=== PATIENT | female | born 1945 | race Caucasian/White ===

== ENCOUNTER 2016-11-28 11:01 | Emergency (ER) | payer MEDICARE ==
[~2016-11-28] VITALS: Ht 162.6 cm; Wt 56.0 kg
[2016-11-28] MEDS ORDERED: SODIUM CHLORIDE FLUSH 3 ML SYR IV PRN (11:10)
[2016-11-28] MEDS ORDERED: SODIUM CHLORIDE FLUSH 10 ML SYR IV PRN (11:10)
--- NOTE | 2016-11-28 11:10 | NUR ---
PT PLACED IN [place] [facility] D/T BP. CL
[2016-11-28] MEDS ORDERED: DILTIAZEM 25 MG/5 ML (CARDIZEM) VIAL IV ONE ×2 (11:35→11:50)
[2016-11-28 11:46] LABS: ALBUMIN 4.2 g/dL (3.4-5.0); ANION GAP 23.7 MEQ/L (3-15); CALCULATED IONIZED CALCIUM 4.4 mg/dL (3.8-4.6); TOTAL PROTEIN 7.7 g/dL (6.4-8.5)
[2016-11-28] MEDS ORDERED: meTOprolol 5 MG/5 ML (LOPRESSOR) VIAL IV ONE (12:10)
--- NOTE | 2016-11-28 12:20 | NUR ---
DR AHMET CAMPOS CALLS BACK TO DR LAW TO DISCUSS PT.
--- NOTE | 2016-11-28 12:26 | NUR ---
[facility]
[2016-11-28 12:44] LABS: BAND NEUTROPHILS % 0 % (0-6); MONOCYTES % 7 % (3-11); SEGMENTED NEUTROPHILS % 79 % (51-67)
[2016-11-28 12:45] LABS: EOSINOPHILS % 0 % (0-4); RBC MORPH NORMAL (NORMAL); TOTAL CELLS COUNTED 100
[2016-11-28 12:50] VITALS: BP 84/56
--- NOTE | 2016-11-28 13:00 | NUR ---
DR LAW TALKS WITH [facility] WHO ACCEPTS FOR DR HUNTER AT [facility]. CL
== END 2016-11-28 13:36 | disposition short-term general hospital (02) ==
LOC: EDUNIT# 11:01 → ED 11:04
DX: I48.91 Unspecified atrial fibrillation (principal); N17.9 Acute kidney failure, unspecified; K52.9 Noninfective gastroenteritis and colitis, unspecified; D68.8 Other specified coagulation defects; I10 Essential (primary) hypertension; Z87.891 Personal history of nicotine dependence
CPT/HCPCS: 36415; 71010; 80053; 83605; 83880; 84443; 84484; 85025; 86140; 87040; 93005; 96361; 96374; 96375; 99285; J7030; 93010; 99291

== ENCOUNTER → 2016-11-28 | Outpatient (CLI) | payer MEDICARE | LOC: EMS 13:24 | PROVIDERS: ATTEND Emergency Medicine | DX: I48.91 Unspecified atrial fibrillation (principal); N17.9 Acute kidney failure, unspecified ==

== ENCOUNTER 2017-02-20 15:55 | Emergency (ER) | payer MEDICARE ==
[~2017-02-20] VITALS: Ht 162.6 cm; Wt 58.6 kg
[~2017-02-20 15:55] MED LIST: CARV25TA30 PO; CHOL200044 PO; FURO40TA4 PO; GBPN300C PO; OMEP20TA PO; ROSU40TA PO; SERT100T8 PO; SPRN25T PO
--- OUTSIDE RECORDS SUMMARY | 2017-02-20 16:00 | XMS REPORT | Summary of Care ---
Author Author Gloria Oliva, Jose Organization Unknown Address Unknown Phone Unavailable Care Team Providers Care Ventilating Equipment Installer Name Role Phone Dickson Gonsalez, Kristen Unavailable Unavailable Keyona Patel Unavailable Unavailable Cecilia Oliva, Сергей Unavailable Unavailable Jose Castro M.D. Unavailable Unavailable Сергей Brooks Unavailable Unavailable Unavailable Unavailable Functional Status Name Dates Details Functional status health issues are not documented Status: Name Dates Details Cognitive status health issues are not documented Status: Problems Name Dates Details Depression (311, F32.9) Status: Active Acid reflux (530.81, K21.9) Status: Active Environmental allergies (V15.09, Z91.09) Status: Active Peripheral neuropathy (356.9, G62.9) Status: Active Injury of right foot, initial encounter (959.7, S99.921A) Status: Active CKD (chronic kidney disease) stage 3, GFR 30-59 ml/min (585.3, N18.3) Status: Active Elevated serum creatinine (790.99, R79.89) Status: Active Hypokalemia (276.8, E87.6) Status: Active Dizziness (780.4, R42) Status: Active No appetite (783.0, R63.0) Status: Active Dry heaves (787.03, R11.10) Status: Active Hypotension (458.9, I95.9) Status: Active Sty, internal (373.12, H00.029) Status: Active Atrial fibrillation (427.31, I48.91) Status: Active Hypertension (401.9, I10) Status: Active Hyperlipidemia (272.4, E78.5) Status: Active Chronic obstructive pulmonary disease, unspecified COPD type (496, J44.9) Status: Active Pulmonary hypertension (416.8, I27.2) Status: Active Hypoxia (799.02, R09.02) Status: Active Rhinorrhea (478.19, J34.89) Status: Active Medications Name Dates Details Sertraline HCl - 100 MG Oral Tablet Take one tablet by mouth daily Quantity: 90 Refills: 3 Сергей Brooks M.D. Start 01-Nov-2016 Active Rosuvastatin Calcium 40 MG Oral Tablet TAKE 1 TABLET DAILY. Quantity: 30 Refills: 6 Сергей Brooks M.D. Start 18-Jun-2016 Active Omeprazole 20 MG Oral Capsule Delayed Release TAKE 1 CAPSULE DAILY EVERY MORNING BEFORE BREAKFAST. Quantity: 30 Refills: 11 Сергей Brooks M.D. Start 18-Jun-2016 Active Spironolactone 25 MG Oral Tablet take 1 tablet by mouth every day Quantity: 30 Refills: 11 Patience Brooks M.D.ian Start 18-Jun-2016 Active Mometasone Furoate 50 MCG/ACT Nasal Suspension USE 2 SPRAYS IN EACH NOSTRIL ONCE DAILY Quantity: 1 Refills: 0 Dickson P.A.Kristen Start 18-Jun-2016 Active 17 GM Inhaler Sildenafil Citrate 20 MG Oral Tablet TAKE ONE TABLET BY MOUTH THREE TIMES DAILY Quantity: 90 Refills: 11 Dickson P.AKristen Caldera Start 25-Jun-2016 Active Potassium Chloride Vangie ER 20 MEQ Oral Tablet Extended Release TAKE 1 TABLET TWICE DAILY. Quantity: 60 Refills: 11 Сергей Brooks M.D. Start 25-Jun-2016 Active Oxygen Increase 4L 24 hours daily with rest, activity, and sleep,J44.9 , permanent use , Concentrator plus portable system with conserver. Quantity: 1 Refills: 0 Jose P.A.Keyona Start 10-Jul-2016 Active Supplies nebulizer with supplies, dx J44.9, permanent use Quantity: 1 Refills: 0 Jose P.A.Keyona Start 10-Jul-2016 Active Ipratropium-Albuterol 0.5-2.5 (3) MG/3ML Inhalation Solution USE 1 UNIT DOSE VIA NEBULIZER FOUR TIMES DAILY. (J44.9) Quantity: 360 Refills: 11 Dickson P.A.Kristen Start 10-Jul-2016 Active Budesonide 0.25 MG/2ML Inhalation Suspension USE 1 UNIT DOSE VIA NEBULIZER EVERY 12 HOURS. RINSE MOUTH OUT AFTER USE. Quantity: 2 Refills: 11 Dickson P.A.Kristen Start 10-Jul-2016 Active 2 ML Plas Cont (30 Plas Conts) Sulfacetamide Sodium 10 % Ophthalmic Solution INSTILL 1 DROP 4 times daily Quantity: 1 Refills: 0 Cecilia M.D., Сергей Start 29-Oct-2016 Active 5 ML Bottle Lisinopril 40 MG Oral Tablet TAKE 1 TABLET BY MOUTH TWICE DAILY Quantity: 60 Refills: 3 Larimer M.D., Сергей Start 29-Oct-2016 Active Amiodarone HCl - 200 MG Oral Tablet TAKE 1 TABLET TWICE DAILY. Quantity: 60 Refills: 0 Larimer M.D., Сергей Start 05-Dec-2016 Active Eliquis 2.5 MG Oral Tablet 1 po BID Quantity: 60 Refills: 0 Larimer M.D., Сергей Start 05-Dec-2016 Active Allergies and Adverse Reactions Name Dates Details No Known Drug Allergies (Allergy) Status: Active Past Medical History Name Dates Details History of Arteriosclerosis of carotid artery, right (433.10, I65.21) Status: Resolved History of gastritis (V12.79, Z87.19) Status: Resolved Procedures Procedure Dates Details History of Appendectomy History of Carotid Artery Catheterization History of Cataract Surgery History of Bypass Graft (Non-Vein) Carotid History of Bypass Graft Using Vein: Femoral-femoral RENAL PROFILE 1240 Ordered: 16-Dec-2016 Immunization Name Dates Details Immunizations not documented Family History Name Dates Details Family history of Coronary artery disease (414.00, I25.10) Status: Active Name Dates Details Family history of Cancer of unknown origin (199.1, C80.1) Status: Active Name Dates Details Family history of Coronary artery disease (414.00, I25.10) Status: Active Social History Name Dates Details - Status: Name Dates Details Former smoker Vital Signs Date Test Result Details 18-Dec-2016 09:16 BP Systolic 108 mm[Hg] Status: Comments: Location: RUE; Position: Sitting BP Diastolic 58 mm[Hg] Status: Comments: Location: RUE; Position: Sitting Heart Rate 85 /min Status: Comments: Location: ; Height 62 in Status: Weight 124 lb Status: Physical Findings 92 Status: Comments: O2 Saturation FiO2 flow rate 4 L/min Status: Body Mass Index Calculated 22.68 kg/m2 Status: Body Surface Area Calculated 1.56 m2 Status: 17-Dec-2016 11:18 BP Systolic 118 mm[Hg] Status: Comments: Location: ; Position: BP Diastolic 42 mm[Hg] Status: Comments: Location: ; Position: Heart Rate 88 /min Status: Comments: Location: ; Weight 131 lb Status: Body Mass Index Calculated 23.96 kg/m2 Status: Body Surface Area Calculated 1.6 m2 Status: 05-Dec-2016 13:31 BP Systolic 104 mm[Hg] Status: Comments: Location: ; Position: BP Diastolic 50 mm[Hg] Status: Comments: Location: ; Position: Heart Rate 76 /min Status: Comments: Location: ; Weight 131 lb Status: Physical Findings 91 Status: Comments: O2 Saturation FiO2 flow rate 4 L/min Status: Body Mass Index Calculated 23.96 kg/m2 Status: Body Surface Area Calculated 1.6 m2 Status: Results Date Description Value Details 12-Dec-2016 14:15 RENAL PROFILE 1240 Comments: Fastin hours SODIUM 139 mmol/L Range: 133-144 POTASSIUM 5.0 mmol/L Range: 3.5-5.1 CHLORIDE 103 mmol/L Range: 98-110 CARBON DIOXIDE 27.3 mmol/L Range: 23.0-33.0 ANION GAP 9 mmol/L Range: 6-16 BUN 28 mg/dL (Above high threshold) Range: 7-18 CREATININE, SERUM 1.70 mg/dL (Above high threshold) Range: 0.55-1.02 EST GFR, 36 ml/min (Below low threshold) Range: >60 EST GFR, NON-AFR DOMINICAN 30 ml/min (Below low threshold) Range: >60 Comments: EST GFR is reported in ml/min per 1.73 m2 of body surface area. ----- BUN:CREATININE RATIO 16 GLUCOSE 86 mg/dL Range: 70-100 ALBUMIN 3.7 g/dL Range: 3.4-5.0 PHOSPHORUS 3.7 mg/dL Range: 2.6-4.7 CALCIUM 10.0 mg/dL Range: 8.5-10.1 14:43 HEMOGRAM 7305 Comments: Fastin hours WBC 7.4 K/uL Range: 4.5-11.0 RBC 3.54 mil/uL (Below low threshold) Range: 3.60-5.00 HGB 10.9 g/dL (Below low threshold) Range: 12.0-16.0 HCT 34.4 % (Below low threshold) Range: 36.0-48.0 MCV 97.0 fL Range: 80.0-99.0 MCH 30.7 pg Range: 27.3-32.5 MCHC 31.7 % (Below low threshold) Range: 32.0-36.0 PLATELETS 191 K/uL Range: 150-400 17-Dec-2016 11:13 ECG/ EKG (Specialists) Electro CardioGram 30-Dec-2016 13:07 CBC w/ Auto Diff 7150 Comments: Manual differential indicated. WBC 7.5 K/uL Range: 4.5-11.0 RBC 3.80 mil/uL Range: 3.60-5.00 HGB 11.6 g/dL (Below low threshold) Range: 12.0-16.0 HCT 36.5 % Range: 36.0-48.0 MCV 96.0 fL Range: 80.0-99.0 MCH 30.4 pg Range: 27.3-32.5 MCHC 31.7 % (Below low threshold) Range: 32.0-36.0 RDW 14.9 % (Above high threshold) Range: 11.6-14.8 PLATELETS 202 K/uL Range: 150-400 MPV 7.7 fL Range: 6.0-11.0 Plan of Care Name Dates Details Planned Observations Planned Goals not documented Planned Encounters Appointment; Provider: Ruby Benton A.P.R.N. On 18-Mar-2017 11:30 Appointment; Provider: Ramone Charles M.D. On 12-Mar-2017 11:00 Appointment; Provider: Сергей Brooks M.D. On 25-Feb-2017 10:00 Instructions Name Dates Details Instructions not documented Encounters Appointment; Kristen Forman P.A. Encounter Diagnosis: Problem not documented On 18-Dec-2016 09:30 Appointment; Sonu Tesfaye P.A. Encounter Diagnosis: Problem not documented On 17-Dec-2016 11:30 Appointment; Сергей Brooks M.D. Encounter Diagnosis: Problem not documented On 05-Dec-2016 13:30 Appointment; Сергей Brooks M.D. Encounter Diagnosis: Problem not documented On 28-Nov-2016 10:00 Appointment; Сергей Brooks M.D. Encounter Diagnosis: Problem not documented On 29-Oct-2016 10:00 Appointment; Jose Castro M.D. Encounter Diagnosis: Problem not documented On 03-Sep-2016 11:00 Appointment; Jesus Alberto Gallegos M.D. Encounter Diagnosis: Problem not documented On 28-Aug-2016 14:15 Appointment; Kinsey Dooley A.P.R.N. Encounter Diagnosis: Problem not documented On 02-Aug-2016 10:30 Appointment; Jesus Alberto Gallegos M.D. Encounter Diagnosis: Problem not documented On 10-Jul-2016 14:00 Appointment; Сергей Brooks M.D. Encounter Diagnosis: Problem not documented On 25-Jun-2016 10:00 Appointment; Сергей Brooks M.D. Encounter Diagnosis: Problem not documented On 18-Jun-2016 10:00
[2017-02-20 16:53] LABS: BILIRUBIN,URINE Negative (Negative); CLARITY,URINE Clear; COLOR,URINE Yellow; GLUCOSE, URINE (UA) Negative (Negative); LEUKOCYTE ESTERASE ,URINE 1+ (Negative); PH,URINE 8.5 (5.0 - 8.0); UROBILINOGEN,URINE >=8.0 mg/dL (0.2-1.0)
[2017-02-20 16:54] LABS: URINE CENTRIFUGED VOLUME <10mL Unspun
[2017-02-20 16:57] LABS: RBC,URINE 0-2 /HPF
[2017-02-20] MEDS ORDERED: DEXAMETHASONE 10 MG/ML (DECADRON) VIAL IM ONE (17:15)
[2017-02-20] MEDS ORDERED: SULF1TAB35 PO (17:15)
[2017-02-20 18:03] VITALS: BP 163/52
== END 2017-02-20 17:45 | disposition home or self-care (01) ==
LOC: ED 15:57
DX: R06.00 Dyspnea, unspecified (principal); N39.0 Urinary tract infection, site not specified
CPT/HCPCS: 81003; 81015; 87088; 87147; 96372; 99282; J1100; 99283